=== PATIENT | male | born 1945 | race Hispanic/Latino ===

== ENCOUNTER → 2023-01-01 | Outpatient (CLI) | payer OTHER | END | disposition home or self-care (01) | LOC: RAH 09:55 | PROVIDERS: ATTEND Family Medicine | DX: M48.061 Spinal stenosis, lumbar region without neurogenic claudication (principal); M47.26 Other spondylosis with radiculopathy, lumbar region | CPT/HCPCS: 72148 ==

== ENCOUNTER → 2023-01-09 | Outpatient (CLI) | payer OTHER | END | disposition home or self-care (01) | LOC: RAH 12:13 | PROVIDERS: ATTEND Internal Medicine Gastroenterology | DX: R13.10 Dysphagia, unspecified (principal); R63.30 Feeding difficulties, unspecified | CPT/HCPCS: 74230; 92611 ==

== ENCOUNTER → 2023-09-06 | Outpatient (CLI) | payer OTHER | END | disposition home or self-care (01) | LOC: RAH 09:26 | PROVIDERS: ATTEND Internal Medicine Cardiovascular Disease | DX: I25.119 Atherosclerotic heart disease of native coronary artery with unspecified angina pectoris (principal); Z95.1 Presence of aortocoronary bypass graft | CPT/HCPCS: 93306 ==

== ENCOUNTER 2023-10-27 16:40 | Inpatient (IN) | payer OTHER ==
[~2023-10-27] VITALS: Ht 172.7 cm; Wt 82.5 kg
[2023-10-27] MEDS: ONDANSETRON 4MG INJ IVP ONE (17:00)
[2023-10-27] MEDS: MORPHINE 4 MG SYG IVP ONE (17:00)
[2023-10-27 17:17] LABS: BASOPHILS # (AUTO) 0.07 K/uL (0.00-0.20); BASOPHILS % (AUTO) 0.9 % (0.0-5.0); EOSINOPHILS # (AUTO) 0.32 K/uL (0.00-0.70); EOSINOPHILS % (AUTO) 4.3 % (0.0-8.0); IMMATURE GRANULOCYTE ABSOLUTE 0.04 K/uL (0-1); LYMPHOCYTES # (AUTO) 2.3 K/uL (1.0-4.8); LYMPHOCYTES % (AUTO) 30.7 % (21.0-51.0); MEAN CORPUSCULAR HEMOGLOBIN 31.3 pg (27.0-33.0); MEAN CORPUSCULAR HGB CONC 33.3 g/dL (32.0-36.0); MEAN CORPUSCULAR VOLUME 94.1 fL (79-99); MONOCYTES # (AUTO) 0.6 K/uL (0.1-1.0); MONOCYTES % (AUTO) 7.8 % (3.0-13.0); NEUTROPHILS # (AUTO) 4.1 K/uL (1.8-7.7); NEUTROPHILS % (AUTO) 55.8 % (40.0-77.0); PLATELET COUNT (AUTO) 167 K/uL (130-400); RED BLOOD CELL COUNT(AUTO) 4.57 MIL/uL (4.50-6.20); RED CELL DISTRIBUTION WIDTH 13.2 % (11.0-15.5); WHITE BLOOD COUNT (AUTO) 7.4 K/uL (4.8-10.8)
[2023-10-27 17:29] LABS: INR <= 0.93 (0.85-1.15)
[2023-10-27 17:30] LABS: PARTIAL THROMBOPLASTIN TIME 24.2 SEC (26.3-35.5)
[2023-10-27 17:31] LABS: POTASSIUM 4.4 mmol/L (3.5-5.1)
[2023-10-27 17:33] LABS: B-TYPE NATRIURETIC PEPTIDE 167 pg/mL (0-100)
[2023-10-27 17:35] LABS: ALBUMIN 3.4 g/dL (3.5-5.0); BILIRUBIN,TOTAL 0.8 mg/dL (0.2-1.0); TOTAL PROTEIN, SERUM 6.9 g/dL (6.0-8.3)
[2023-10-27] MEDS: PANTOPRAZOLE 40 MG TAB DR PO ONE (17:52)
[2023-10-27] MEDS: NITROGLYCERIN 1GM OINT 1 INCH/1GM TD ONE (17:52)
[2023-10-27] MEDS: ASPIRIN 325MG TAB PO ONE (17:52)
[2023-10-27] MEDS: NITROGLYCERIN 0.4 MG SL TAB SL PRN (19:41)
[2023-10-27] MEDS ORDERED: GABA-529 PO ×2 (19:48)
[2023-10-27] MEDS ORDERED: FINA5TAB41 PO (19:49)
[2023-10-27] MEDS ORDERED: METO-391 PO (19:49)
[2023-10-27] MEDS ORDERED: PRAZ1CAP5 PO (19:50)
[2023-10-27] MEDS ORDERED: LOSA25TA41 PO (19:50)
[2023-10-27] MEDS ORDERED: ATOR40TA71 PO (19:50)
[2023-10-27] MEDS ORDERED: CLON0.5T4 PO (19:51)
[2023-10-27] MEDS ORDERED: ESOM40CA66 PO (19:52)
[2023-10-27] MEDS ORDERED: NITR0.4T50 SL (19:52)
[2023-10-27] MEDS ORDERED: AEC81 PO (19:52)
[2023-10-27] MEDS ORDERED: MORPHINE 2 MG SYG IVP PRN (20:00)
[2023-10-27] MEDS ORDERED: HYDRALAZINE 20MG/ML VIAL IV PRN (20:00)
[2023-10-27] MEDS ORDERED: ACETAMINOPHEN 650 MG SUPPOSITORY RC PRN (20:00)
[2023-10-27] MEDS: LACTATED RINGERS 1000ML 1,000 ML IV SCH (20:20)
[2023-10-27] MEDS: FAMOTIDINE 20MG TAB PO SCH (20:20)
[2023-10-27] MEDS: INSULIN HUMULIN R 100 UNIT/ML 3ML SQ SCH (20:38)
[2023-10-27 21:40] VITALS: BP 138/67; PULSE 51; RESP 17
[2023-10-28] VITALS (8 sets, daily range): BP systolic 108–144; BP diastolic 54–76; PULSE 57–97; RESP 17–18; O2SAT 96–98
[2023-10-28 04:00] LABS: BASOPHILS # (AUTO) 0.06 K/uL (0.00-0.20); EOSINOPHILS # (AUTO) 0.29 K/uL (0.00-0.70); EOSINOPHILS % (AUTO) 4.8 % (0.0-8.0); HEMATOCRIT 40.6 % (42-54); IMMATURE GRANULOCYTE ABSOLUTE 0.02 K/uL (0-1); LYMPHOCYTES # (AUTO) 2.1 K/uL (1.0-4.8); LYMPHOCYTES % (AUTO) 34.4 % (21.0-51.0); MEAN CORPUSCULAR HEMOGLOBIN 30.5 pg (27.0-33.0); MEAN CORPUSCULAR VOLUME 95.3 fL (79-99); MONOCYTES # (AUTO) 0.5 K/uL (0.1-1.0); MONOCYTES % (AUTO) 7.6 % (3.0-13.0); NEUTROPHILS # (AUTO) 3.1 K/uL (1.8-7.7); NEUTROPHILS % (AUTO) 51.9 % (40.0-77.0); PLATELET COUNT (AUTO) 165 K/uL (130-400); RED BLOOD CELL COUNT(AUTO) 4.26 MIL/uL (4.50-6.20); RED CELL DISTRIBUTION WIDTH 13.3 % (11.0-15.5)
[2023-10-28 04:23] LABS: MAGNESIUM 1.8 mg/dL (1.80-2.40); PHOSPHORUS 3.2 mg/dL (2.5-4.9); POTASSIUM 4.2 mmol/L (3.5-5.1)
[2023-10-28] MEDS: POLYETHYLENE GLYCOL 3350 17 GM POWD.PACK PO SCH (08:49)
[2023-10-28] MEDS: ENOXAPARIN SODIUM 40 MG/0.4 ML SYRINGE SQ SCH (08:50)
[2023-10-28] MEDS ORDERED: NITROGLYCERIN 0.4 MG SL TAB SL SCH (10:00)
[2023-10-28] MEDS: GABAPENTIN 100 MG CAPSULE PO ONE (14:45)
[2023-10-28] MEDS: LOSARTAN 25 MG TABLET PO ONE (14:45)
[2023-10-28] MEDS: FINASTERIDE 5 MG TABLET PO ONE (14:45)
[2023-10-28] MEDS: MAGNESIUM 2GM PREMIX 50ML 50 ML IV PRN (17:22)
[2023-10-28] MEDS: ATORVASTATIN 40 MG TABLET PO SCH (20:39)
[2023-10-28] MEDS: CLONAZEPAM 0.5 MG TABLET PO SCH (20:40)
[2023-10-28] MEDS: GABAPENTIN 100 MG CAPSULE PO SCH (20:40)
[2023-10-28] MEDS: Prazosin HCl 1 MG PO SCH (20:45)
[2023-10-29] VITALS (9 sets, daily range): BP systolic 109–171; BP diastolic 48–74; PULSE 51–71; RESP 18–19; O2SAT 94–95
[2023-10-29 04:56] LABS: MEAN CORPUSCULAR HEMOGLOBIN 30.3 pg (27.0-33.0); MEAN CORPUSCULAR VOLUME 94.6 fL (79-99); RED BLOOD CELL COUNT(AUTO) 4.23 MIL/uL (4.50-6.20); RED CELL DISTRIBUTION WIDTH 13.4 % (11.0-15.5); WHITE BLOOD COUNT (AUTO) 6.4 K/uL (4.8-10.8)
[2023-10-29 05:36] LABS: ALBUMIN 3.1 g/dL (3.5-5.0); BILIRUBIN,TOTAL 1.4 mg/dL (0.2-1.0); CREATININE 0.9 mg/dL (0.5-1.3); TOTAL PROTEIN, SERUM 6.8 g/dL (6.0-8.3)
[2023-10-29] MEDS: FINASTERIDE 5 MG TABLET PO SCH (08:27)
[2023-10-29] MEDS: LOSARTAN 25 MG TABLET PO SCH (08:28)
[2023-10-29] MEDS: GABAPENTIN 100 MG CAPSULE PO SCH (08:28)
[2023-10-29] MEDS: ASPIRIN 81 MG EC TAB PO SCH (08:28)
[2023-10-29] MEDS ORDERED: NON-FORMULARY MEDICATION 1 EACH (Esomeprazole Magnesium 40 MG) PO SCH (09:00)
[2023-10-29] MEDS: ONDANSETRON 4MG INJ IVP PRN (20:19)
[2023-10-30] VITALS (8 sets, daily range): BP systolic 118–143; BP diastolic 55–73; PULSE 51–71; RESP 16–19; O2SAT 96–98
[2023-10-30 04:45] LABS: CREATININE 0.9 mg/dL (0.5-1.3)
[2023-10-30] MEDS: ACETAMINOPHEN 325 MG TAB PO PRN (20:49)
[2023-10-31] VITALS (7 sets, daily range): BP systolic 129–163; BP diastolic 61–78; PULSE 52–68; RESP 16–18; O2SAT 94–96
[2023-10-31 04:13] LABS: CREATININE 0.9 mg/dL (0.5-1.3); POTASSIUM 4.5 mmol/L (3.5-5.1)
[2023-11-01 03:34] VITALS: BP 129/72; PULSE 58; RESP 19
[2023-11-01 04:48] LABS: CREATININE 0.8 mg/dL (0.5-1.3); POTASSIUM 4.1 mmol/L (3.5-5.1)
[2023-11-01 08:00] VITALS: BP 115/58; PULSE 63; RESP 17
[2023-11-01 12:00] VITALS: BP_SYST 139; BP_SYST 148; BP_DIAS 65; BP_DIAS 66; PULSE 53; PULSE 74; RESP 18
[2023-11-01 12:39] LABS: ALBUMIN 2.8 g/dL (3.5-5.0); BILIRUBIN,DIRECT 0.2 mg/dL (0.0-0.3)
[2023-11-01 12:46] LABS: APPEARANCE,URINE CLEAR (CLEAR); BILIRUBIN,URINE NEGATIVE (NEGATIVE); COLOR,URINE LIGHT-YELLOW (YELLOW); GLUCOSE, URINE (UA) NEGATIVE (NEGATIVE); KETONES,URINE NEGATIVE (NEGATIVE); LEUKOCYTE ESTERASE ,URINE NEGATIVE Leu/uL (NEGATIVE); NITRATE,URINE NEGATIVE (NEGATIVE); OCCULT BLOOD,URINE NEGATIVE (NEGATIVE); PH,URINE 7.5 (5.0-8.0); PROTEIN,URINE NEGATIVE (NEGATIVE)
[2023-11-01 12:47] LABS: ADD UA MICROSCOPIC NO
[2023-11-01 14:13] LABS: RHEUMATOID ARTHRITIS FACTOR <10.0 IU/mL (<14.0)
[2023-11-01 16:00] VITALS: BP 172/71; PULSE 57; RESP 18
[2023-11-01] MEDS ORDERED: FAMO20TA8 PO (16:15)
[2023-11-04 15:13] LABS: ATYPICAL P-ANCA AB <1:20 titer (Neg:<1:20); CYTOPLASMIC (C-ANCA) AB, IGG <1:20 titer (Neg:<1:20)
== END 2023-11-01 17:20 | disposition home or self-care (01) | DRG 206 ==
LOC: EDH 16:40 → EDHIP 19:58 → 4AH 20:54
PROVIDERS: ADMIT Internal Medicine Pulmonary Disease; ATTEND Internal Medicine Pulmonary Disease
DX: M94.0 Chondrocostal junction syndrome [Tietze] (principal); M62.82 Rhabdomyolysis; N17.9 Acute kidney failure, unspecified; I25.119 Atherosclerotic heart disease of native coronary artery with unspecified angina pectoris; K21.9 Gastro-esophageal reflux disease without esophagitis; I10 Essential (primary) hypertension; E11.9 Type 2 diabetes mellitus without complications; E78.00 Pure hypercholesterolemia, unspecified; E86.1 Hypovolemia; Z95.1 Presence of aortocoronary bypass graft; Z88.0 Allergy status to penicillin; Z88.1 Allergy status to other antibiotic agents
CPT/HCPCS: 36415; 71045; 80048; 80053; 80076; 81003; 82550; 82948; 83690; 83735; 83880; 84100; 84484; 85025; 85027; 85610; 85651; 85730; 86015; 86038; 86140; 86215; 86235; 86255; 86431; 93005; G0378; J1650; J2405; J3475; J7120

== ENCOUNTER 2023-12-23 19:40 | Emergency (ER) | payer OTHER ==
[~2023-12-23] VITALS: Ht 172.7 cm; Wt 93.0 kg
[~2023-12-23 19:40] MED LIST: AEC81 PO; CLON0.5T4 PO; ESOM40CA66 PO; FAMO20TA8 PO; FINA5TAB41 PO; GABA-529 PO; LOSA25TA41 PO; METO-391 PO; NITR0.4T50 SL; PRAZ1CAP5 PO
[2023-12-23 20:56] LABS: BASOPHILS # (AUTO) 0.05 K/uL (0.00-0.20); BASOPHILS % (AUTO) 0.9 % (0.0-5.0); EOSINOPHILS % (AUTO) 5.5 % (0.0-8.0); HEMATOCRIT 39.9 % (42-54); IMMATURE GRANULOCYTE ABSOLUTE 0.02 K/uL (0-1); LYMPHOCYTES # (AUTO) 1.9 K/uL (1.0-4.8); LYMPHOCYTES % (AUTO) 34.2 % (21.0-51.0); MEAN CORPUSCULAR HEMOGLOBIN 30.8 pg (27.0-33.0); MEAN CORPUSCULAR HGB CONC 34.1 g/dL (32.0-36.0); MEAN CORPUSCULAR VOLUME 90.3 fL (79-99); MONOCYTES # (AUTO) 0.5 K/uL (0.1-1.0); MONOCYTES % (AUTO) 9.1 % (3.0-13.0); NEUTROPHILS # (AUTO) 2.7 K/uL (1.8-7.7); NEUTROPHILS % (AUTO) 49.9 % (40.0-77.0); PLATELET COUNT (AUTO) 164 K/uL (130-400); RED BLOOD CELL COUNT(AUTO) 4.42 MIL/uL (4.50-6.20); RED CELL DISTRIBUTION WIDTH 12.4 % (11.0-15.5); WHITE BLOOD COUNT (AUTO) 5.5 K/uL (4.8-10.8)
[2023-12-23] MEDS: LIDOCAINE HCL 2% VISCOUS 15 ML UDCUP PO ONE (21:05)
[2023-12-23] MEDS: MAG/ALUM/SIMETH 30 ML UDCUP PO ONE (21:05)
[2023-12-23] MEDS: PANTOPRAZOLE 40 MG/VIAL IVP ONE (21:06)
[2023-12-23 21:20] LABS: POTASSIUM 4.1 mmol/L (3.5-5.1)
[2023-12-23] MEDS ORDERED: PANT40TA55 PO (21:44)
[2023-12-23 22:21] VITALS: BP 132/74; PULSE 66; RESP 20; O2SAT 100
== END 2023-12-23 22:24 | disposition home or self-care (01) ==
LOC: EDH 19:40
DX: K21.9 Gastro-esophageal reflux disease without esophagitis (principal); I10 Essential (primary) hypertension; E11.9 Type 2 diabetes mellitus without complications; E78.00 Pure hypercholesterolemia, unspecified; Z79.82 Long term (current) use of aspirin; Z79.899 Other long term (current) drug therapy; Z98.890 Other specified postprocedural states; Z95.810 Presence of automatic (implantable) cardiac defibrillator; Z95.1 Presence of aortocoronary bypass graft; Z88.0 Allergy status to penicillin; Z88.1 Allergy status to other antibiotic agents; Z88.8 Allergy status to other drugs, medicaments and biological substances
CPT/HCPCS: 99285; 84484; 80048; 85025; 36415; 71045; 96374; 93005; J2470